=== PATIENT | male | born 1990 | race Caucasian/White ===

== ENCOUNTER 2017-04-06 20:07 | Emergency (ER) | payer BC ==
[2017-04-06 20:16] VITALS: TEMP 99.7; BMI 41.2
--- NOTE | 2017-04-06 20:18 | PDOC ---
History of Present Illness <Nicole Raymond - Last Filed: 04/06/17 21:29> - General History Source: Patient Exam Limitations: No Limitations - History of Present Illness Initial Comments: 04/06/17 20:22 27-year-old male with no medical history presents to the emergency department complaining of pain to the left ankle. Patient states while playing softball this evening, another player slid into his left ankle causing immediate deformity. Pain is described as 6/10 sharp nonradiating intermittent discomfort only on movements and alleviated minimally at rest. Patient denies any knee/ extremity numbness or tingling sensation/pain. Occurred: reports: just prior to arrival Lower Extremity Pain Location: left: ankle Method of Injury: Yes: sports injury <Anthony Chambers - Last Filed: 04/07/17 04:06> - General Chief Complaint: Injury Stated Complaint: INJURY Time Seen by Provider: 04/06/17 20:14 Past History <Nicole Raymond - Last Filed: 04/06/17 21:29> - Psycho/Social/Smoking Cessation Hx Suicidal Ideation: No Smoking History: Never smoked Have you smoked in the past 12 months: No Information on smoking cessation initiated: No Hx Alcohol Use: No Drug/Substance Use Hx: No <Anthony Chambers - Last Filed: 04/07/17 04:06> - Past Medical History Allergies/Adverse Reactions: Allergies Allergy/AdvReac Type Severity Reaction Status Date / Time No Known Allergies Allergy Verified 04/06/17 20:14 Home Medications: Ambulatory Orders Oxycodone HCl/Acetaminophen [Percocet 5-325 mg Tablet] 1 - 2 tab PO Q6H #20 tab MDD 6 04/07/17 *Physical Exam - Vital Signs Last Vital Signs Temp Pulse Resp BP Pulse Ox 99.7 F H 105 H 20 155/90 98 04/06/17 20:15 04/06/17 20:15 04/06/17 20:15 04/06/17 20:15 04/06/17 20:15 <Nicole Raymond - Last Filed: 04/06/17 21:29> - Vital Signs Last Vital Signs Temp Pulse Resp BP Pulse Ox 99.7 F H 105 H 20 155/90 98 04/06/17 20:15 04/06/17 20:15 04/06/17 20:15 04/06/17 20:15 04/06/17 20:15 <Anthony Chambers - Last Filed: 04/07/17 04:06> ED Treatment Course - Medications Given in the ED: ED Medications Discontinued Medications Generic Name Dose Route Start Last Admin Trade Name Patricia PRN Reason Stop Dose Admin Morphine Sulfate 4 mg 04/06/17 21:08 04/06/17 21:28 Morphine Injection - IVPUSH 04/06/17 21:09 4 mg ONCE ONE Administration <Nicole Raymond - Last Filed: 04/06/17 21:29> - RADIOLOGY Radiograph Interpretation: 04/07/17 03:57 Xray Left ankle: bimalleolar fx with subluxation xray left LL: mortis still widen to medial region but better alignment Procedure: Sugar tong fiber glass splint <Anthony Chmabers - Last Filed: 04/07/17 04:06> Medical Decision Making - Medical Decision Making 04/06/17 21:29 Dr. Gillette was paged and notified via phone service. <SegundoNicole - Last Filed: 04/06/17 21:29> *DC/Admit/Observation/Transfer <SegundoNicole - Last Filed: 04/06/17 21:29> <Anthony Chambers - Last Filed: 04/07/17 04:06> Diagnosis at time of Disposition: Bimalleolar ankle fracture Qualifiers: Encounter type: initial encounter Fracture type: closed Laterality: left Qualified Code(s): S82.842A - Displaced bimalleolar fracture of left lower leg, initial encounter for closed fracture - Discharge Dispostion Disposition: HOME Condition at time of disposition: Stable - Prescriptions Prescriptions: Oxycodone HCl/Acetaminophen [Percocet 5-325 mg Tablet] 1 - 2 tab PO Q6H #20 tab MDD 6 - Referrals Referrals: Lazaro Kong [Primary Care Provider] - Jose Gillette MD [Staff Physician] - - Patient Instructions Printed Discharge Instructions: DI for Ankle Fracture Additional Instructions: Rest ELEVATE ELEVATE ELEVATE ICE ICE ICE Rx: Percocet 5/325 1 tablet by mouth every 6 hours as needed for severe pain Take tylenol or motrin for mild pain Return to the ER for severe/persistent/worsening symptoms Follow up with Dr. Gillette/orthopedics on Sunday
[2017-04-06] MEDS ORDERED: morphine CARPU-JECT 4 MG/1 ML DISP.SYRIN IVPUSH ONE (21:08)
[2017-04-06] MEDS ORDERED: morphine CARPU-JECT 2 MG/1 ML DISP.SYRIN ONE (21:29)
[2017-04-06] MEDS ORDERED: MIDAZOLAM HCL 2 MG/2 ML SINGLE DOSE VIAL IVPUSH ONE (22:50)
[2017-04-06] MEDS ORDERED: KETAMINE HCL 200 MG/20 ML VIAL IVPUSH ONE (22:50)
[2017-04-06] MEDS ORDERED: KETAMINE HCL 200 MG/20 ML VIAL ONE (22:52)
[2017-04-06] MEDS ORDERED: MIDAZOLAM HCL 2 MG/2 ML SINGLE DOSE VIAL ONE (22:52)
[2017-04-07 00:34] VITALS: BP 143/86; PULSE 89
--- NOTE | 2017-04-07 00:50 | PDOC ---
*Physical Exam - Vital Signs Last Vital Signs Temp Pulse Resp BP Pulse Ox 99.7 F H 89 18 143/86 99 04/06/17 20:15 04/07/17 00:33 04/07/17 00:33 04/07/17 00:33 04/07/17 00:33 ED Treatment Course - Medications Given in the ED: ED Medications Discontinued Medications Generic Name Dose Route Start Last Admin Trade Name Patricia PRN Reason Stop Dose Admin Morphine Sulfate 4 mg 04/06/17 21:08 04/06/17 21:28 Morphine Injection - IVPUSH 04/06/17 21:09 4 mg ONCE ONE Administration Medical Decision Making - Medical Decision Making 04/07/17 00:49 Pt seen by the Advanced Practice Provider under my direct supervision Pt interviewed and examined Ancillary studies reviewed I agree with plan as outlined by the Advanced Practice Provider RAJ Chambers The patient has a dislocated fracture of the left ankle. He is neurovascular intact. I had consented the patient and the family in regards to moderate sedation and reduction of the left ankle. Risks and benefits were discussed and the patient agreed for her sedation and reduction. 2 mg of IV Versed was given with 150 mg of IV ketamine. The patient successfully under moderate sedation with normal vital signs and maintaining normal oxygen saturation. Patient never studies desaturated and was ventilating normally throughout the procedure. An attempt was reduced by my physician assistant administrator Reyes with a palpable click. Postreduction was then subsequently followed with a posterior U-splint. Patient remained to have pulses in his left lower extremity. We'll obtain a postreduction x-ray and have patient follow with orthopedics. *DC/Admit/Observation/Transfer Diagnosis at time of Disposition: Bimalleolar ankle fracture Qualifiers: Encounter type: initial encounter Fracture type: closed Laterality: left Qualified Code(s): S82.842A - Displaced bimalleolar fracture of left lower leg, initial encounter for closed fracture - Prescriptions Prescriptions: Oxycodone HCl/Acetaminophen [Percocet 5-325 mg Tablet] 1 - 2 tab PO Q6H #20 tab MDD 6 - Referrals Referrals: Lazaro Kong [Primary Care Provider] - - Patient Instructions - Post Discharge Activity
== END 2017-04-07 04:28 | disposition home or self-care (01) ==
LOC: JER 20:07
PROC: 2W3RX1Z Immobilization of Left Lower Leg using Splint (ICD-10-PCS; principal; 2017-04-06)
DX: S82.842A Displaced bimalleolar fracture of left lower leg, initial encounter for closed fracture (principal); W50.0XXA Accidental hit or strike by another person, initial encounter; Y93.64 Activity, baseball; Y92.320 Baseball field as the place of occurrence of the external cause; Y99.8 Other external cause status
CPT/HCPCS: 73590-TC-LT; 73610-TC-LT; 73630-TC-LT; 99283-25

== ENCOUNTER 2017-04-11 05:06 | Day surgery (SDC) | payer BC, OTHER ==
[2017-04-10 13:03] VITALS: BMI 41.2
[2017-04-11] MEDS ORDERED: ROPIVACAINE HCL 0.5% 30ML VIAL ONE (07:30)
[2017-04-11] MEDS ORDERED: MIDAZOLAM HCL 2 MG/2 ML SINGLE DOSE VIAL ONE ×4 (07:31→08:38)
[2017-04-11] MEDS ORDERED: SUCCINYLCHOLINE CHLORIDE 200 MG/10 ML VIAL ONE (08:12)
[2017-04-11] MEDS ORDERED: PROPOFOL 20 ML ONE ×2 (08:12)
[2017-04-11] MEDS ORDERED: ceFAZolin SODIUM 1 GM VIAL IVPB ONE ×2 (08:28→08:36)
[2017-04-11] MEDS ORDERED: ePHEDrine SULFATE 50 MG/1 ML AMPULE ONE (08:33)
[2017-04-11] MEDS ORDERED: ceFAZolin SODIUM 1 GM VIAL ONE (08:33)
--- NOTE | 2017-04-11 10:39 | HP ---
[facility]ellite [facility] - Chief Complaint Chief Complaint: left ankle fx - Past Medical History Allergies/Adverse Reactions: Allergies Allergy/AdvReac Type Severity Reaction Status Date / Time No Known Allergies Allergy Verified 04/11/17 06:37 - Current Medications Current Medications: Home Medications Medication Instructions Recorded Oxycodone HCl/Acetaminophen 1 - 2 tab PO Q6H #20 tab MDD 6 04/07/17 [Percocet 5-325 mg Tablet] Ibuprofen [Advil -] 400 mg PO PRN PRN 04/11/17 Satellite Physical Exam - Physical Examination Vital Signs: Vital Signs Period Temp Pulse Resp BP Sys/Hollingsworth Pulse Ox Last 24 Hr 97.8 F-97.8 F 95-95 20-20 128-128/86-86 97 General Appearance: Well Nourished, Well Developed, Alert & Oriented x3, Obese ENT: Clear Lung: Normal air movement Heart: Regular rate & rhythm Extremities: Other (left ankle- splint intact, + ttp, + swelling, dec rom, nvi xrays show displaced distal fibula fx with syndesmosis rupture) Neurological: Intact, Alert, Oriented Satellite Impression/Plan - Impression/Plan Impression: left ankle fx/dislocation Operative Procedure: left ankle orif, syndesmosis repair Date to be Performed: 04/11/17
--- NOTE | 2017-04-11 10:40 | OP ---
Operative Note - Note: Operative Date: 04/11/17 ([facility]) Pre-Operative Diagnosis: left ankle fx/dislocation Operation: left ankle orif, syndesmosis repair Post-Operative Diagnosis: Same as Pre-op Surgeon: Jose Gillette Retail Event Assistant: Robbin Cross) Anesthesiologist/TOOL AND DIE MANAGER: Ruth Randhawa MD Anesthesia: Spinal, Local Estimated Blood Loss (mls): 150 Operative Report Dictated: Yes
[2017-04-11] MEDS ORDERED: oxyCODONE HCL 5 MG TABLET PO PRN (10:52)
[2017-04-11] MEDS ORDERED: ONDANSETRON 4 MG/2 ML VIAL IVPUSH PRN (10:52)
[2017-04-11] MEDS ORDERED: PROMETHAZINE HCL 25 MG/1 ML VIAL IVPUSH PRN (10:52)
[2017-04-11] MEDS ORDERED: LACTATED RINGERS SOLUTION 1,000 ML IV SCH (11:00)
--- NOTE | 2017-04-11 12:01 | OP ---
DATE OF OPERATION: 04/11/2017 PREOPERATIVE DIAGNOSIS: Left ankle fracture dislocation with syndesmotic injury. POSTOPERATIVE DIAGNOSIS: Left ankle fracture dislocation with syndesmotic injury. PROCEDURE: Left ankle open reduction internal fixation with syndesmotic fixation and fibular plate. SURGEON: Karin Osuna MD MILL STENCILER: RAJ Turner. ANESTHESIOLOGIST: Ruth Randhawa MD ANESTHESIA: Regional block plus spinal anesthesia. DRAINS: None. COMPLICATIONS: None. BLOOD LOSS: 200 mL. BLOOD GIVEN: None. FLUID REPLACEMENT: 700 mL. INDICATIONS: This patient is a 27-year-old male with a preoperative diagnosis of a significant distal fibular fracture, syndesmotic disruption, and ankle dislocation. After understanding the potential risks, complications, alternatives, and benefits of surgery versus nonsurgical treatment, the patient elected to undergo this procedure. The patient understands that he may develop post-traumatic arthritis, permanent pain, stiffness, disability, difficulty ambulating or running, need for additional surgery, need for plate removal, risk of infection. DESCRIPTION OF PROCEDURE: The patient was brought to the operating room. Peripheral IV placed. IV sedation given. IV Ancef, 2 g, was given, as this patient is approximately 350 pounds. Left lower extremity was prepped and draped in sterile fashion, elevated, exsanguinated with an Esmarch bandage. Tourniquet was inflated to 340 mmHg. The lateral incision was made with a No. 15 scalpel blade. Subcutaneous hemostasis was achieved with a Bovie cautery. Dissection done down to the distal lateral fibula. Periosteal dissection was done. Periosteal elevator used to raise posterior and anterior flaps. This revealed a highly comminuted fracture site about 8 cm proximal to the distal fibula with multiple butterfly fragments. The area was gently irrigated, washed out, and soft tissue debrided, and hematoma removed from the fracture site. It was difficult to get reduction, but after many attempts we were able to get a good reduction with alligator forceps and hold it in place with 0 Vicryl cerclage sutures. X-rays were taken. Overall, it looked quite good, and the medial ankle mortise was much improved. Next, I used a low-profile distal fibular Aishwarya pre-contoured fibular 14-hole plate. This was held in place with K-wires. Again, x-rays were taken to confirm excellent position. I put in three distal unicortical locking screws into the distal fibula. Then, I put in four proximal bicortical screws, two locking and two nonlocking. Overall, it came together quite nicely. Prior to putting the plate on, I did use about 3 mL of Sandoval Putty, and put the butterfly fragments back in place as close as possible to anatomic reduction. Next, I put in another two bicortical locking screws in the mid aspect of the plate. X-rays were taken. Overall, the fracture fragments at the distal fibula and overall alignment in the hardware position looked quite good. Under direct C-arm fluoroscopic guidance, I then put in two Arthrex tightrope anchors, both through the plates at the level of the syndesmosis. This also came together quite nicely and reduced the syndesmosis quite well. Final x-rays were taken. Overall, they looked quite good. The syndesmosis was reduced, the medial joint space widening was reduced, and the fibula located as mentioned. We used 0 Vicryl to close the deep fascial layer, 2-0 Vicryl used to close the deep dermal layer. Final skin reapproximation was done with wendy. The area was then washed and dried and covered with Xeroform, 4x4 gauze, Webril, and first a 6-inch Ortho-Glass posterior splint was applied and wrapped with a 4-inch and then an 6-inch Kaiden bandage. Then, a side AO bar with 5-inch Ortho-Glass was put both medially and laterally and also wrapped with two Kaiden bandages. The tourniquet had been taken down previously for a total tourniquet time of about 60 minutes. Total operative time was about 1-1/2 hours. There were no complications during the case. Patient tolerated the procedure quite well and was brought to the ambulatory recovery room in stable condition. KARIN OSUNA M.D. [id number]
--- NOTE | 2017-04-11 13:05 | OP ---
DATE OF OPERATION: 04/11/2017 ADDENDUM CORRECTION: PRIMARY SURGEON: Jose Gillette MD [employer] CLAIM EXAMINER: Robbin Cross MD [employer]: RAJ Turner M.D. [id number]
[2017-04-11 13:31] VITALS: PULSE 90; TEMP 98
[2017-04-11 13:34] VITALS: BP 139/90
== END 2017-04-11 13:36 | disposition home or self-care (01) ==
LOC: JASU-SURG 05:06
PROVIDERS: ATTEND Orthopaedic Surgery
PROC: 0SSG04Z Reposition Left Ankle Joint with Internal Fixation Device, Open Approach (ICD-10-PCS; 2017-04-11)
PROC: 0QSK04Z Reposition Left Fibula with Internal Fixation Device, Open Approach (ICD-10-PCS; principal; 2017-04-11 08:00)
DX: S82.62XA Displaced fracture of lateral malleolus of left fibula, initial encounter for closed fracture (principal); X58.XXXA Exposure to other specified factors, initial encounter; Y93.9 Activity, unspecified; Y92.9 Unspecified place or not applicable; Y99.9 Unspecified external cause status
CPT/HCPCS: 76000-TC; 94760